=== PATIENT | female | born 1950 | race Caucasian/White ===

== ENCOUNTER → 2016-12-15 | Outpatient (CLI) | payer OTHER ==
[~2016-12-15] MED LIST: EST1 PO; HYDROCODONE PO; IBUP-1050 PO; OXYC1TAB3 PO
--- NOTE | 2016-12-15 14:36 | MAMMOGRAPHY REPORT ---
BILATERAL DIGITAL SCREENING MAMMOGRAM WITH CAD: 12/15/2016 CLINICAL HISTORY: Routine screening. Patient has no complaints. TECHNIQUE: Bilateral CC and MLO views were obtained. Current study was also evaluated with a Comput er Aided Detection (CAD) system. COMPARISON: Comparison is made to exams dated: 12/11/2015 mammogram, 11/09/2014 mammogram, 11/07/2013 mammogram, 11/04/2012 mammogram, 11/06/2011 mammogram, and 10/31/2009 mammogram - [facility]. BREAST COMPOSITION: There are scattered areas of fibroglandular density in both breasts. FINDINGS: The parenchymal pattern is similar to prior exams. There are benign calcifications in th e breasts. No developing mass, architectural distortion or cluster of suspicious microcalcification s is seen in either breast. IMPRESSION: ACR BI-RADS CATEGORY 2: BENIGN There is no mammographic evidence of malignancy. A 1 year screening mammogram is recommended. The p atient will receive written notification of the results. Approximately 10% of breast cancers are not detected with mammography. A negative mammographic repor t should not delay biopsy if a clinically suggestive mass is present. Yamilet Avalos M.D. ay/:12/15/2016 09:25:01 Employee Training Specialist: [employer] LATIF(Nan)(Guerita)(BD), [facility] letter sent: Normal 1/2 BI-RADS Code: ACR BI-RADS Category 2: Benign
== END | disposition home or self-care (01) ==
LOC: C.MAMM 08:49
PROVIDERS: ATTEND Family Medicine
DX: Z12.31 Encounter for screening mammogram for malignant neoplasm of breast (principal)

== ENCOUNTER → 2017-12-16 | Outpatient (CLI) | payer OTHER ==
--- NOTE | 2017-12-16 15:56 | MAMMOGRAPHY REPORT ---
BILATERAL DIGITAL SCREENING MAMMOGRAM TOMOSYNTHESIS WITH CAD: 12/16/2017 CLINICAL HISTORY: Routine screening. Patient has no complaints. TECHNIQUE: Breast tomosynthesis in addition to standard 2D mammography was performed. Current study was also evaluated with a Computer Aided Detection (CAD) system. COMPARISON: Comparison is made to exams dated: 12/15/2016 mammogram, 12/11/2015 mammogram, 11/09/2014 m ammogram, 11/07/2013 mammogram, 11/04/2012 mammogram, and 11/06/2011 mammogram - [facility]. BREAST COMPOSITION: There are scattered areas of fibroglandular density in both breasts. FINDINGS: The parenchymal pattern is similar to prior mammograms. There is stable asymmetry in the medial, middle one third of the left breast. A few scattered benign rim calcifications. No suspiciou s mass, architectural distortion or cluster of microcalcifications is seen. IMPRESSION: ACR BI-RADS CATEGORY 2: BENIGN There is no mammographic evidence of malignancy. A 1 year screening mammogram is recommended. The pa tient will receive written notification of the results. Approximately 10% of breast cancers are not detected with mammography. A negative mammographic report should not delay biopsy if a clinically suggestive mass is present. Yamilet Avalos M.D. ay/:12/16/2017 10:08:43 Sleeve Fixer: Reema LATIF(Nan)(), [facility] letter sent: Normal 1/2 BI-RADS Code: ACR BI-RADS Category 2: Benign
== END | disposition home or self-care (01) ==
LOC: C.MAMM 09:22
PROVIDERS: ATTEND Nurse Practitioner
DX: Z12.31 Encounter for screening mammogram for malignant neoplasm of breast (principal)

== ENCOUNTER 2022-12-01 13:08 | Inpatient (IN) ==
[2022-12-01 14:00] LABS: Basophils # (auto) 0.04 K/uL (0-0.2); Basophils % (auto) 0.6 %; Eosinophils # (auto) 0.25 K/uL (0-0.50); Eosinophils % (auto) 3.9 %; Hematocrit (blood only) 42.8 % (37.0-47.0); Immature Granulocytes # (auto) 0.02 K/uL (0.01-0.20); Immature Granulocytes % (auto) 0.3 %; Lymphocytes # (auto) 2.58 K/uL (1.2-3.4); Lymphocytes % (auto) 40.6 %; Mean Corpuscular Hemoglobin 32.3 pg (25.0-34.0); Mean Platelet Volume 11.2 fL (9.4-12.4); Monocytes # (auto) 0.32 K/uL (0.11-0.59); Neutrophils # (auto) 3.14 K/uL (1.40-6.50); Neutrophils % (auto) 49.6 %; Platelet Count 184 K/uL (130-400); RDW Coefficient of Variation 11.9 % (11.5-14.5); RDW Standard Deviation 39.9 fL (36.4-46.3); Red Blood Count 4.65 M/uL (4.20-5.40); White Blood Count 6.35 K/ul (4.8-10.8)
[2022-12-01 14:17] LABS: Albumin Globulin Ratio 1.4 (0.9-2); Albumin Level 4.2 gm/dl (3.4-5.0); BUN Creatinine Ratio 37.2 (10-20); Bilirubin,Total 0.7 mg/dl (0.2-1.0); Calcium 9.3 mg/dl (8.5-10.1); Creatinine Clr Calc Pharmacy 56.3 ml/min; Potassium 3.5 mmol/L (3.5-5.1); Total Protein 7.2 gm/dl (6.0-8.3)
[2022-12-01 14:21] LABS: Troponin I High Sensitivity 3.2 pg/ml (0-14)
--- NOTE | 2022-12-01 14:40 | XRay Report ---
TWO VIEW CHEST CLINICAL HISTORY: Atypical chest pain. FINDINGS: PA and lateral chest radiographs are compared to study dated 04/14/2019. The heart is mildly enlarged noting atherosclerotic calcification of the thoracic aorta. The pulmonary vasculature is n oncongested PA The lungs and pleural spaces are otherwise clear noting bibasilar scarring/atelectasis . There is no pneumothorax. The skeletal structures are osteopenic. The bony thorax appears intact. IMPRESSION: No active disease in the chest. ACT 112: Negative or not required by law. Electronically signed by: Pito Palacios M.D. 12/01/2022 2:39 PM
[2022-12-01] MEDS: SODIUM CHLORIDE 0.9% 1000ML 1,000 ML IV SCH (16:46)
--- NOTE | 2022-12-01 16:51 | Emergency Department Note ---
Impression & Plan Abnormal ECG, Intermittent chest pain ED Provider Note ED Provider Note NAME: DANY MEDRANO AGE:72 SEX: Female : 1950 ARRIVES VIA: Private vehicle INFORMANT: Patient ED PROVIDER(s): Kathrin Floyd DO CHIEF COMPLAINT: Abnormal EKG, intermittent chest pain HPI: This is a 72-year-old female who presents to the emergency department after being directed here from the cardiology office for additional evaluation. Patient states she saw cardiology at the recommendation of her PCP due to concern for what she describes as intermittent cramps which also included her left chest wall and left ribs. Her PCP performed an EKG in the office and was concerned and scheduled her to see cardiology. She states she has been having these intermittent muscle spasms in her extremities as well as her abdomen and not only in her chest. She cannot pinpoint a trigger for these episodes or pattern to them. They are not only with exertion. She denies recent fevers chills or other illness. 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 Patient denies any current pain. She denies any coming shortness of breath, nausea, dizziness, or sweating. No other recent change in medications. PAST MEDICAL HISTORY:See Below PAST SURGICAL HISTORY:See Below FAMILY HISTORY:See Below SOCIAL HISTORY:See Below HOME MEDICATIONS:See Below ALLERGIES:See Below VITALS:See Below PHYSICAL EXAMINATION: GENERAL: alert, well appearing, well nourished, no distress, non-toxic EYE EXAM: normal conjunctiva, PERRL and EOM's grossly intact OROPHARYNX: no exudate, no erythema, lips, buccal mucosa, and tongue normal and mucous membranes are moist NECK: supple, no nuchal rigidity, no adenopathy, non-tender LUNGS: Clear to auscultation. Normal chest wall mechanics, no w/r/r HEART: no murmurs, S1 normal and S2 normal ABDOMEN: abdomen soft, non-tender, normo-active bowel sounds, no masses, no rebound or guarding. BACK: Back is symmetrical on inspection and there is no deformity, no midline tenderness, no CVA tenderness. SKIN: no rashes, petechiae, orbruising UPPER EXTREMITIES: upper extremities are grossly normal. FROM, nml pulses b/l. LOWER EXTREMITIES: No pitting edema. FROM, nml pulses b/l. NEURO EXAM: Normal sensorium, cranial nerves II-XII grossly intact, normal speech, no facial droop,nogross weakness of arms, no gross weakness of legs. Gross sensation intact. No ataxia. Vital Signs: reviewed and remarkable Differential Diagnosis: Differential diagnoses includes but is not limited to acute coronary syndrome, pericarditis, pulmonary embolus, aortic dissection, pneumonia, pneumothorax, musculoskeletal, shingles, esophageal. MEDICAL DECISION MAKING: This is a 72-year-old female who presents emergency room after being sent here from outpatient cardiology office. Patient had no pain at this time. She was afebrile and hemodynamically stable. EKG does reveal T wave inversions which were seen on prior from 2 weeks ago. Labs drawn and sent, IV established. Initial troponin negative. Given patient was sent in from cardiology, I did contact them to discuss the case after reviewing the office notes. Patient scheduled to have catheterization in the morning due to intermittent pain and new EKG changes recently. Given history of prior PEs, I did send patient for CT angiography of the chest, this was reassuring and negative. Patient main stable in the emergency room, no ectopy or dysrhythmia, [facility]. Patient had no pain in the emergency room, per cardiology did not require heparin. Consultation(s): 1720: Discussed with Dr. Rain. 1750: [facility] Treatment Provided: See below Diagnostics Interpreted By Me: -ECG: Normal sinus at 63, normal QRS and QTc, normal axis, inverted T waves noted in 2, 3, aVF, V2 through V5 with flattened T wave in V6 -Cardiac Monitoring: An order was placed for continuous cardiac monitoring. The monitor shows a rate of 60 with normal sinus rhythm. -Laboratory studies: As stated above and show below. -Imaging studies: [] Triage Nursing Note Reviewed Prior/Outside Records Reviewed -outpatient cardiology office visit note and old EKGs Procedures: [] Critical Care: [] Past Med/Surg History Medical History Hypertension MDD (major depressive disorder) Migraine Reactive airway disease Surgical History History of total abdominal hysterectomy Hx of foot surgery Hx of nasal septoplasty Family History Mother Lung disease Heart disease Uncle Cancer Brain Aunt Diabetes Other Family history non-contributory Social History Smoking Status: Former smoker Hx Alcohol Use: Yes Hx Substance Use: No Preferred Language: Turkish Urology Physician Required: No Beliefs That Will Affect Care: None Current Living Situation: Alone Feels Safe at Home: Yes Safety Concerns: Feels Safe At This Time Allergies Allergies Allergy/AdvReac Type Severity Reaction Status Date / Time sulfamethoxazole Allergy Mild Verified 12/01/22 19:09 [From Bactrim] trimethoprim [From Bactrim] Allergy Mild Verified 12/01/22 19:09 vicryl Allergy Intermediate Uncoded 12/01/22 19:09 Home Meds Home Medications Medication Instructions Recorded Confirmed azelastine 137 mcg (0.1 %) nasal 2 spray intranasal DAILY 03/29/19 12/01/22 spray aerosol cholecalciferol (vitamin D3) 125 5,000 unit PO DAILY 03/29/19 12/01/22 mcg (5,000 unit) tablet (Vitamin D3) sertraline 50 mg tablet 100 mg PO DAILY 03/29/19 12/01/22 hydrochlorothiazide 25 mg tablet 25 mg PO QAM 04/14/19 12/01/22 atorvastatin 20 mg tablet 20 mg PO QAM 12/01/22 12/01/22 hydrochlorothiazide 25 mg tablet 25 mg PO QAM 12/01/22 12/01/22 metoprolol succinate 25 mg 25 mg PO BID 12/01/22 12/01/22 tablet,extended release 24 hr oxybutynin chloride 5 mg tablet 5 mg PO BID 12/01/22 12/01/22 potassium chloride 10 mEq 10 meq PO QAM 12/01/22 12/01/22 tablet,extended release Previous Rx's Medication Instructions Recorded sumatriptan succinate 100 mg tablet See Rx Instructions PO .COMPLEX 05/05/19 #12 tabs montelukast 10 mg tablet 10 mg PO HS #90 tabs 09/19/19 (Singulair) Results & Data (ED) Vital Signs Vital Signs - 24 hr 12/01/22 13:11 12/01/22 16:41 12/01/22 16:33 Temperature 36.6 C Temperature Source Temporal Artery Scan Pulse Rate 63 59 L 63 Pulse Rate [Apical] Pulse Rhythm Regular Respiratory Rate 18 16 Blood Pressure 123/74 Blood Pressure Mean 90 Blood Pressure Position Sitting Pulse Oximetry 94 95 Oxygen Delivery Method Room Air Room Air Sepsis Recent Fever Within 48 Hours No Sepsis New/Unexplained Change in Mental Status N/A Sepsis Action Taken by Nursing No Action Required 12/01/22 17:53 Temperature Temperature Source Pulse Rate Pulse Rate [Apical] 58 L Pulse Rhythm Respiratory Rate 18 Blood Pressure Blood Pressure Mean Blood Pressure Position Pulse Oximetry 94 Oxygen Delivery Method Room Air Sepsis Recent Fever Within 48 Hours Sepsis New/Unexplained Change in Mental Status Sepsis Action Taken by Nursing Laboratory Data 12/01/22 13:30 12/01/22 13:30 Lab Results 12/01/22 12/01/22 Range/Units 13:30 13:30 WBC 6.35 (4.8-10.8) K/ul RBC 4.65 (4.20-5.40) M/uL Hgb 15.0 (12.0-16.0) g/dl Hct 42.8 (37.0-47.0) % MCV 92.0 (80.0-100.0) fL MCH 32.3 (25.0-34.0) pg MCHC 35.0 (32.0-36.0) g/dL RDW Std Deviation 39.9 (36.4-46.3) fL RDW Coeff of Hunter 11.9 (11.5-14.5) % Plt Count 184 (130-400) K/uL MPV 11.2 (9.4-12.4) fL Immature Gran % (Auto) 0.3 % Neut % (Auto) 49.6 % Lymph % (Auto) 40.6 % [place] % (Auto) 5.0 % Eos % (Auto) 3.9 % Baso % (Auto) 0.6 % Neut # (Auto) 3.14 (1.40-6.50) K/uL Lymph # (Auto) 2.58 (1.2-3.4) K/uL [place] # (Auto) 0.32 (0.11-0.59) K/uL Eos # (Auto) 0.25 (0-0.50) K/uL Baso # (Auto) 0.04 (0-0.2) K/uL Immature Gran # (Auto) 0.02 (0.01-0.20) K/uL Sodium 138 (136-145) mmol/L Potassium 3.5 (3.5-5.1) mmol/L Chloride 103 (98-107) mmol/L Carbon Dioxide 30 (21-32) mmol/L Anion Gap 5 (3-11) BUN 29 H (6-23) mg/dl Creatinine 0.78 (0.6-1.2) mg/dl Est Cr Clr Drug Dosing 56.3 ml/min Est GFR ( Amer) 88.0 ml/min Est GFR (Non-Af Amer) 76.0 ml/min BUN/Creatinine Ratio 37.2 H (10-20) Glucose 93 (70-99(Fasting)) mg/dl Calcium 9.3 (8.5-10.1) mg/dl Magnesium 1.8 (1.7-2.4) mg/dl Total Bilirubin 0.7 (0.2-1.0) mg/dl AST 23 (13-39) U/L ALT 18 (7-52) U/L Alkaline Phosphatase 62 (34-104) U/L Troponin I High Sens 3.2 (0-14) pg/ml Total Protein 7.2 (6.0-8.3) gm/dl Albumin 4.2 (3.4-5.0) gm/dl Globulin 3.0 (2.5-4.0) gm/dl Albumin/Globulin Ratio 1.4 (0.9-2) Lipase 22 (11-82) U/L Administered Medications Sodium Chloride (Nss 1000ml) 1,000 mls @ 200 mls/hr IV .Q5H [facility] Stop: 12/31/22 16:44 Last Admin: 12/01/22 16:46 Dose: 200 mls/hr Documented By: NRB Discontinued Medications Ioversol (Optiray 320 500ml) 113 ml IV ONCE ONE Stop: 12/01/22 17:31 Last Admin: 12/01/22 17:32 Dose: 113 ml Documented By: EFRAIN Potassium Chloride (Potassium Chloride Crtab 20 Meq Tabcr) 40 meq PO NOW STA Stop: 12/01/22 16:54 Last Admin: 12/01/22 17:00 Dose: 40 meq Documented By: BAILEE Imaging Data Radiologist's Impression: Chest X-Ray 12/01/22 13:16 TWO VIEW CHEST CLINICAL HISTORY: Atypical chest pain. FINDINGS: PA and lateral chest radiographs are compared to study dated 04/14/2019. The heart is mildly enlarged noting atherosclerotic calcification of the thoracic aorta. The pulmonary vasculature is noncongested PA The lungs and pleural spaces are otherwise clear noting bibasilar scarring/atelectasis. There is no pneumothorax. The skeletal structures are osteopenic. The bony thorax appears intact. IMPRESSION: No active disease in the chest. ACT 112: Negative or not required by law. Electronically signed by: Pito Palacios M.D. 12/01/2022 2:39 PM Chest CTA 12/01/22 16:53 CT ANGIOGRAPHY OF THE CHEST, PULMONARY EMBOLUS PROTOCOL CLINICAL HISTORY: Shortness of breath. Evaluate for pulmonary embolus. COMPARISON STUDY: Chest CT March 29, 2019 and chest radiograph performed earlier today. TECHNIQUE: Following IV administration of 113 mL of Optiray, helical axial images of the chest were obtained utilizing the pulmonary embolus protocol. Maximal intensity projections and sagittal and coronal reformats were viewed on an independent 3D workstation. IV contrast was administered without complication. Automated exposure control was utilized for the study. A dose lowering technique was utilized adhering to the principles of ALARA. CT DOSE: 373.18 mGy.cm FINDINGS: No pulmonary emboli are identified. There is no thoracic aortic dissection. Size of the heart is at the upper limits of normal. There is no pericardial effusion. No enlarged thoracic lymph nodes are present. Prominent right hilar lymph node is unchanged since prior CT. This is benign. Central airways are patent. Subpleural opacities within lungs represent atelectasis or scarring. There is no consolidation to suggest pneumonia. Mild bronchial wall thickening and multifocal mucus plugging is again noted. No acute fractures within the bony thorax are noted. IMPRESSION: 1. No pulmonary emboli identified. 2. Subpleural opacities within the lungs suggestive of atelectasis or scarring. No consolidation to suggest pneumonia. 3. Mild bronchial wall thickening and mucus plugging, similar to prior exam. ACT 112: Negative or not required by law. Electronically signed by: Miguel Diaz M.D. 12/01/2022 5:55 PM Discharge Plan Visit Data Chief Complaint: Cardiac Assessment Stated Complaint: CARDIAC ASSESSMENT, REF BY DOC ED Provider: Kathrin Floyd Discharge Problem: Abnormal ECG, Intermittent chest pain Patient Disposition: Admitted As Inpatient Discharge Instructions Interventions: ED Discharge Assessment Last Done: 12/01/22 18:55
[2022-12-01] MEDS ORDERED: POTASSIUM CHLORIDE CRTAB 20 MEQ TABCR PO STA (16:53)
[2022-12-01] MEDS ORDERED: OPTIRAY 320 500ml IV ONE (17:30)
--- NOTE | 2022-12-01 17:56 | CT Scan Report ---
CT ANGIOGRAPHY OF THE CHEST, PULMONARY EMBOLUS PROTOCOL CLINICAL HISTORY: Shortness of breath. Evaluate for pulmonary embolus. COMPARISON STUDY: Chest CT March 29, 2019 and chest radiograph performed earlier today. TECHNIQUE: Following IV administration of 113 mL of Optiray, helical axial images of the chest were o btained utilizing the pulmonary embolus protocol. Maximal intensity projections and sagittal and cor onal reformats were viewed on an independent 3D workstation. IV contrast was administered without co mplication. Automated exposure control was utilized for the study. A dose lowering technique was ut ilized adhering to the principles of ALARA. CT DOSE: 373.18 mGy.cm FINDINGS: No pulmonary emboli are identified. There is no thoracic aortic dissection. Size of the he art is at the upper limits of normal. There is no pericardial effusion. No enlarged thoracic lymph no abiodun are present. Prominent right hilar lymph node is unchanged since prior CT. This is benign. Centra l airways are patent. Subpleural opacities within lungs represent atelectasis or scarring. There is n o consolidation to suggest pneumonia. Mild bronchial wall thickening and multifocal mucus plugging is again noted. No acute fractures within the bony thorax are noted. IMPRESSION: 1. No pulmonary emboli identified. 2. Subpleural opacities within the lungs suggestive of atelectasis or scarring. No consolidation to s uggest pneumonia. 3. Mild bronchial wall thickening and mucus plugging, similar to prior exam. ACT 112: Negative or not required by law. Electronically signed by: Miguel Diaz M.D. 12/01/2022 5:55 PM
--- NOTE | 2022-12-01 18:00 | History & Physical Report ---
Date of Service December 01, 2022 Assessment & Plan (1) Abnormal ECG: (2) Hypertension: (3) Chest pain: Plan: - Admit to tele for planned cardiac catheterization tomorrow per cardiology, consulted, appreciate recs - Trend cardiac biomarkers, initial set was negative - EKG reviewed as above - Check 2 D echo was completed as an outpatient, reviewed this personally, showing LVEF of 50 to 55%, no valvular abnormalities, mild concentric LVH. No need to repeat another inpatient echo. - EKG prn for chest pain, can consider nitro paste if needed for chest pain. - N.p.o. after midnight for cath - Cont HCTZ, metoprolol - Noted borderline hypokalemia, will continue p.o. potassium supplementation - May continue asa 81 mg (4) Reactive airway disease: Plan: -History of such, chronic, may continue inhalers as needed -Continue montelukast (5) MDD (major depressive disorder): Plan: -Continue sertraline 100 mg daily DVT PPx: - teds, scds CODE: DNR/DNI Dispo: From home, likely to remain in the hospital x 1-2 days A total of 77 minutes were spent with greater than 50% of that time face to face with the patient, personally reviewing all current laboratories, imaging studies, past medication reconciliation, outpatient chart review, and discussion with specialists to collaborate care for the patient with attending. Please see attending documentation for corrections and/or additions. History of Present Illness Chief Complaint: chest pain Primary Care Provider: Milad Vasquez MD This is a 72 yo F with PMhx of DVT/PE in Nov 2018, allergic rhinitis, chronic sinusitis, and possible reactive airway disease, migraines, HTN, anxiety, former tobacco user, who presents today with chest pain. Today she presents from the outpatient cardiology office after referral from [facility] for chest heaviness and pressure. She describes having a "katiana horse, like spasm sensation over her chest" Pt also admits to having dizziness, but also states hx of vertigo with turning to the left. The only thing she can do to relieve the pain is to lean back and stretch out her chest. It seems to improve within 1.5 minutes. She denies any associated shortness of breath but has a chronic cough associated with reactive airway disease, brings up white/beverly phlegm but denies any hemoptysis. She uses inhalers as needed and does not wear any O2 at baseline. Two weeks ago she was sent to the [facility], where it was noted that she was hypokalemic. She has been taking HCTZ. Today she is borderline hypokalemia again. Troponin today is 3.2 . Surgical Hx: Social Hx: former tobacco use over 50 years ago; age [age] x1 ppd drinks alcohol : 1-3 shot whiskey mixed with some water "depending on the day", reports 1 drink in the past week, denies withdrawal symptoms Allergies Allergy/AdvReac Type Severity Reaction Status Date / Time sulfamethoxazole Allergy Mild Verified 12/01/22 19:09 [From Bactrim] trimethoprim [From Bactrim] Allergy Mild Verified 12/01/22 19:09 vicryl Allergy Intermediate Uncoded 12/01/22 19:09 Home Medications Medication Instructions Recorded Confirmed Type azelastine 137 mcg (0.1 %) nasal 2 spray intranasal DAILY 03/29/19 12/01/22 History spray aerosol cholecalciferol (vitamin D3) 125 5,000 unit PO DAILY 03/29/19 12/01/22 History mcg (5,000 unit) tablet (Vitamin D3) sertraline 50 mg tablet 100 mg PO DAILY 03/29/19 12/01/22 History hydrochlorothiazide 25 mg tablet 25 mg PO QAM 04/14/19 12/01/22 History sumatriptan succinate 100 mg tablet See Rx Instructions PO .COMPLEX 05/05/19 12/01/22 Rx #12 tabs montelukast 10 mg tablet 10 mg PO HS #90 tabs 09/19/19 12/01/22 Rx (Singulair) atorvastatin 20 mg tablet 20 mg PO QAM 12/01/22 12/01/22 History hydrochlorothiazide 25 mg tablet 25 mg PO QAM 12/01/22 12/01/22 History metoprolol succinate 25 mg 25 mg PO BID 12/01/22 12/01/22 History tablet,extended release 24 hr oxybutynin chloride 5 mg tablet 5 mg PO BID 12/01/22 12/01/22 History potassium chloride 10 mEq 10 meq PO QAM 12/01/22 12/01/22 History tablet,extended release Past Med/Surg History Medical History (Updated 12/01/22 @ 19:47 by Nargis Wakefield PA-C) Hypertension MDD (major depressive disorder) Migraine Reactive airway disease Surgical History (Updated 12/01/22 @ 19:11 by Nargis Wakefield PA-C) History of total abdominal hysterectomy Hx of foot surgery Hx of nasal septoplasty Family History (Updated 12/01/22 @ 19:10 by Nargis Wakefield PA-C) Mother Lung disease Heart disease Uncle Cancer Brain Aunt Diabetes Other Family history non-contributory Social History Smoking Status: Never smoker Preferred Language: Maori Feels Safe at Home: Yes Review of Systems Review of Systems: Constitutional: No fever, sweats or chills Eyes: No diplopia, no worsening or blurred vision ENT: normal hearing, no trouble swallowing Respiratory: + chronic cough, + sputum, denies dyspnea at rest or on exertion Cardiovascular: As per HPI, currently no chest pain, tightness or palpitations Abdomen: No pain, nausea, vomiting, diarrhea or constipation Musculoskeletal: No joint pain, calf pain, swelling Neurologic: No weakness, numbness/tingling, or balance problems Psychiatric: No anxiety or depression Skin: No rash or itch Physical Exam Physical Exam: General: awake, alert, no apparent distress, appears younger than stated age Head: Normocephalic, atraumatic ENT: PERRL, EOMI, no pharyngeal exudate, mucous membranes moist Chest: No chest tenderness on palpation of chest wall, clear to auscultation, on room air, no adventitious breath sounds Cardiac: Regular rate and rhythm, no murmur, no JVD, normal peripheral pulses, good capillary refill Abdominal: NABS x 4 quadrants, soft, nondistended, nontender to palpation, no rebound or guarding Extremities: Normal inspection, no peripheral edema or erythema, calfs nontender to palpation Psych: Normal mood and affect Neuro: AAO x 3, strength intact bilaterally and rated 5/5, no motor deficits, speech is clear, no peripheral sensory deficits Skin: Tattoo on right ankle Results & Data Results & Data ([facility]) Vital Signs (Past 12 Hours) Vital Signs Temp Pulse Pulse Resp BP Pulse Ox O2 Del Method 12/01/22 17:53 58 L 18 94 Room Air 12/01/22 16:33 63 12/01/22 16:41 59 L 16 95 Room Air 12/01/22 13:11 36.6 C 63 18 123/74 94 Room Air Laboratory Results 12/01/22 12/01/22 12/01/22 Unknown 13:30 13:30 WBC 6.35 RBC 4.65 Hgb 15.0 Hct 42.8 MCV 92.0 MCH 32.3 MCHC 35.0 RDW Std Deviation 39.9 RDW Coeff of Hunter 11.9 Plt Count 184 MPV 11.2 Immature Gran % (Auto) 0.3 Neut % (Auto) 49.6 Lymph % (Auto) 40.6 Davis % (Auto) 5.0 Eos % (Auto) 3.9 Baso % (Auto) 0.6 Neut # (Auto) 3.14 Lymph # (Auto) 2.58 Davis # (Auto) 0.32 Eos # (Auto) 0.25 Baso # (Auto) 0.04 Immature Gran # (Auto) 0.02 Sodium 138 Potassium 3.5 Chloride 103 Carbon Dioxide 30 Anion Gap 5 BUN 29 H Creatinine 0.78 Est Cr Clr Drug Dosing 56.3 Est GFR ( Amer) 88.0 Est GFR (Non-Af Amer) 76.0 BUN/Creatinine Ratio 37.2 H Glucose 93 Calcium 9.3 Magnesium 1.8 Total Bilirubin 0.7 AST 23 ALT 18 Alkaline Phosphatase 62 Troponin I High Sens 3.2 Total Protein 7.2 Albumin 4.2 Globulin 3.0 Albumin/Globulin Ratio 1.4 Lipase 22 SARS-CoV-2, RNA, NAAT NEGATIVE Diagnostic Findings Chest X-Ray 12/01/22 13:16 TWO VIEW CHEST CLINICAL HISTORY: Atypical chest pain. FINDINGS: PA and lateral chest radiographs are compared to study dated 04/14/2019. The heart is mildly enlarged noting atherosclerotic calcification of the thoracic aorta. The pulmonary vasculature is noncongested PA The lungs and pleural spaces are otherwise clear noting bibasilar scarring/atelectasis. There is no pneumothorax. The skeletal structures are osteopenic. The bony thorax appears intact. IMPRESSION: No active disease in the chest. ACT 112: Negative or not required by law. Electronically signed by: Pito Palacios M.D. 12/01/2022 2:39 PM Chest CTA 02/13/23 16:53 CT ANGIOGRAPHY OF THE CHEST, PULMONARY EMBOLUS PROTOCOL CLINICAL HISTORY: Shortness of breath. Evaluate for pulmonary embolus. COMPARISON STUDY: Chest CT March 29, 2019 and chest radiograph performed earlier today. TECHNIQUE: Following IV administration of 113 mL of Optiray, helical axial images of the chest were obtained utilizing the pulmonary embolus protocol. Maximal intensity projections and sagittal and coronal reformats were viewed on an independent 3D workstation. IV contrast was administered without complication. Automated exposure control was utilized for the study. A dose lowering technique was utilized adhering to the principles of ALARA. CT DOSE: 373.18 mGy.cm FINDINGS: No pulmonary emboli are identified. There is no thoracic aortic dissection. Size of the heart is at the upper limits of normal. There is no pericardial effusion. No enlarged thoracic lymph nodes are present. Prominent right hilar lymph node is unchanged since prior CT. This is benign. Central airways are patent. Subpleural opacities within lungs represent atelectasis or scarring. There is no consolidation to suggest pneumonia. Mild bronchial wall thickening and multifocal mucus plugging is again noted. No acute fractures within the bony thorax are noted. IMPRESSION: 1. No pulmonary emboli identified. 2. Subpleural opacities within the lungs suggestive of atelectasis or scarring. No consolidation to suggest pneumonia. 3. Mild bronchial wall thickening and mucus plugging, similar to prior exam. ACT 112: Negative or not required by law. Electronically signed by: Miguel Diaz M.D. 12/01/2022 5:55 PM ECG Additional Comments: Reviewed personally, showing ST and T wave inversions in inferior and anterior leads 01-DEC-2022 13:29:11 [facility]-EDSTAT ROUTINE RETRIEVAL Normal sinus rhythm ST & T wave abnormality, consider inferior ischemia ST & T wave abnormality, consider anterior ischemia Abnormal ECG When compared with ECG of 14-APR-2019 18:32, Borderline criteria for Inferior infarct are no longer Present T wave inversion more evident in Inferior leads Inverted T waves have replaced nonspecific T wave abnormality in Anterior leads 25mm/[id number] 241CID: 3Unconfirmed Vent. rate 63 BPM CO interval 144 ms QRS duration 84 ms QT/QTc 426/435 ms Code Status & VTE Plan Code Status DNR/DNI-discussed with the patient at bedside Supervising Physician Co-Signing Physician Notes Date of Service: December 01, 2022 History and physical exam performed by me notable for 72yo F with medical problems as detailed who was sent in from cards office for card cath as part of workup for chronic intermittent chest pain. Chest pain is atypical, not exertional, described as 'charley horse' Reports chronic cough and shortness of breath, unchanged Also has chronic vertigo. Exam was unremarkable Labs unremarkable CTA chest did not show PE but noted subpleural scarring vs atelectasis Keep NPO PMN for cath Card consult Other plans as detailed by Nargis Wakefield PA-C
[2022-12-01 18:49] LABS: Magnesium 1.8 mg/dl (1.7-2.4)
[2022-12-01] MEDS ORDERED: ACETAMINOPHEN 325 MG TAB PO PRN (19:26)
[2022-12-01] MEDS ORDERED: ONDANSETRON INJ 2 MG/ML 2 ML VIAL IV PRN (19:26)
--- NOTE | 2022-12-01 19:58 | Communication Note ---
Date of Service: December 01, 2022 History and physical exam performed by me notable for 72yo F with medical problems as detailed who was sent in from cards office for card cath as part of workup for chronic intermittent chest pain. Chest pain is atypical, not exertional, described as 'charley horse' Reports chronic cough and shortness of breath, unchanged Also has chronic vertigo. Exam was unremarkable Labs unremarkable CTA chest did not show PE but noted subpleural scarring vs atelectasis Keep NPO PMN for cath Card consult
[2022-12-02] MEDS: SODIUM CHLORIDE 0.9% 1000ML 1,000 ML IV SCH ×3 (01:02→06:05)
[2022-12-02 06:09] LABS: Hematocrit (blood only) 37.5 % (37.0-47.0); Hemoglobin 13.1 g/dl (12.0-16.0); Mean Corpuscular Hemoglobin 32.8 pg (25.0-34.0); Mean Corpuscular Hgb Conc 34.9 g/dL (32.0-36.0); Mean Platelet Volume 10.8 fL (9.4-12.4); Platelet Count 147 K/uL (130-400); RDW Standard Deviation 41.5 fL (36.4-46.3); Red Blood Count 3.99 M/uL (4.20-5.40)
[2022-12-02 06:27] LABS: BUN Creatinine Ratio 29.3 (10-20); Calcium 7.8 mg/dl (8.5-10.1); Chol HDL Ratio 2.7 (0-5); Creatinine Clr Calc Pharmacy 67.3 ml/min; Est GFR (African American) 92.3 ml/min; Est GFR (Non-African American) 79.6 ml/min; Magnesium 1.8 mg/dl (1.7-2.4); Potassium 3.6 mmol/L (3.5-5.1)
[2022-12-02 06:57] LABS: Estimated Average Glucose 111 mg/dl; Hemoglobin A1C 5.5 % (4.5-5.6)
--- NOTE | 2022-12-02 08:59 | Cardiology Consultation ---
Date of Consultation December 02, 2022 Assessment & Plan (1) Atypical chest pain: (2) Hypertension: (3) Abnormal ECG: (4) Dyslipidemia, goal LDL below 70: (5) Coronary artery calcification: (6) Thoracic aorta atherosclerosis: Plan Very pleasant 72 year old female admitted with atypical chest pain, exertional dyspnea, abnormal EKG, multiple cardiac risk factors. Imaging with thoracic and coronary artery calcifications. High sensitivity troponin negative with outpatient resting echocardiography on 12/01/2022 revealing preserved LV systolic function without wall motion abnormality or significant valvular issues. Options of management discussed including doing nothing, medical management, referral for stress testing, and diagnostic cardiac catheterization. Risks and benefits of options explained with patient electing referral for diagnostic cardiac catheterization. Keep NPO. Continue IV fluids. Cardiac catheterization planned this afternoon. Recommend discontinuation of Hydrochlorothiazide. Hold metoprolol given observed bradycardia. Recommend continuation of aspirin, statin, risk factor, and lifestyle modification. Supervising Physician Co-Signing Physician Notes Patient seen and examined and all records inpatient and outpatient reviewed. Patient with chest discomfort with atypical features abnormal EKG with persistent complaints despite evaluations and treatments. Patient referred for diagnostic coronary angiography later today procedure and risks explained in detail to the patient additional risks of coronary invention also discussed including increased risk of myocardial infarction and urgent bypass surgery Informed consent is obtained History of Present Illness Reason for Consultation: Chest pain, T wave inversion Requesting Physician: Twyla Attending Physician: Rakel History of Present Illness Ms. Lily Cameron is a very pleasant 72-year-old female who is being seen at the request of Mrs. Wakefield and Dr. Ellington, evaluation of chest discomfort and an abnormal EKG revealing diffuse ST-T wave changes. Patient describes having chest discomfort off and on for greater than 1 year. She states that it is not a pain, describing it as a cramp or a charley horse, as if somebody grabbed a hold. The discomfort is not specific to the chest, occurring in the abdomen, fingers, lower extremities, muscles. Symptoms occur without rhyme or reason, lasting at most 2 minutes. Aggravating factors are not described. Alleviating factors are stretching or straightening up as well as increased free water intake. Patient notes meeting with her PCP approximately 2 weeks ago. EKG was abnormal with patient noting that her primary care provider suspected that she has had a myocardial infarction at some point. Due to complaints of chest discomfort and the abnormal EKG the patient was referred to the closest emergency room the same day, November 20, 2022. High-sensitivity troponin T negative at less than 6 ng/L. Notable findings in the emergency room included marked hypokalemia with a potassium of 2.8, receiving oral and IV supplementation at that time, discharge with a prescription for potassium chloride 10 mEq/day. D-dimer was negative. Chest x-ray showed chronic interstitial markings with left basilar atelectasis. On December 01, 2021 patient was evaluated in the [facility] cardiology Clinic. Resting echocardiogra phy revealed preserved LV systolic function without wall motion abnormality and without significant valvular disease. Due to ongoing discomfort and the abnormal EKG, the patient was referred to the emergency room for further evaluation and possible cardiac catheterization. Chest x-ray revealed a mildly enlarged heart with atherosclerotic calcification in the thoracic aorta and bibasilar scarring/atelectasis. CTA of the chest showed no pulmonary emboli or thoracic aortic dissection. Mild bronchial wall thickening and multifocal mucous plugging observed. High-sensitivity troponin I negative x3 at 3.2, 4.7, and 4.6 pg/mL. Past Medical and Surgical History History of DVT/PE in the setting of a staph sinus infection and possible COVID, with associated cough syncope circa late 2018. Chronic respiratory failure with hypoxia Asthma Occupational exposure in workplace Chronic sinusitis Deviated nasal septum Hypertension Migraine headaches GERD Overactive bladder Chronic low back pain Allergic rhinitis Generalized anxiety disorder Carpal tunnel surgery Remote foot/toe surgery Arthroscopic right knee surgery Sinus surgery Cystocele repair Hysterectomy Remote mechanical fall with resultant back issues, left elbow and right wrist surgical interventions Family history: Mother was a smoker and with metastatic lung cancer. She had CAD in her 70s. Father had an RI when he was young, passing with emphysema. Both were smokers. One sister passed with ? COVID; she had COPD. One brother and one sister without cardiac issues. Social history: Reformed smoker, quitting 50 years ago after smoking 1 pack/day x 5 years. Alcohol: 2 to 3-4 shots of vodka per day. No illegal drug use. Patient previously worked x23 years at [employer]. . Complete Review of Systems: Constitutional: No fevers, night sweats, or chills. HEENT: No amaurosis fugax. No macular degeneration or glaucoma. Pulmonary: See above. + Cough productive of phlegm. + Wheezing promptly aided by PRN albuterol. Cardiac: No prior cardiac history, denying CAD, RI, CHF, arrhythmia, heart murmur, rheumatic fever, or scarlet fever. GI/Abd: GERD. No dysphagia. No melana or hematochezia. Denies liver problems. Denies kidney problems. Vascular: Denies history of claudication, AAA, or carotid artery disease. Hematologic: No coagulation disorder. No abnormal bleeding. Musculoskeletal: See above. Skin: No rash. Neurologic: Denies history of TIA or CVA. Denies history of seizure. Female : Overactive bladder, treated with oxybutynin with resultant dry mouth. Endocrine: Denies diabetes history. Denies thyroid problems. Complete Review of Systems is as stated above, negative, or noncontributory. Allergies Allergy/AdvReac Type Severity Reaction Status Date / Time sulfamethoxazole Allergy Mild Verified 12/01/22 19:09 [From Bactrim] trimethoprim [From Bactrim] Allergy Mild Verified 12/01/22 19:09 vicryl Allergy Intermediate Uncoded 12/01/22 19:09 Home Medications Medication Instructions Recorded Confirmed Type azelastine 137 mcg (0.1 %) nasal 2 spray intranasal DAILY 03/29/19 12/01/22 History spray aerosol cholecalciferol (vitamin D3) 125 5,000 unit PO DAILY 03/29/19 12/01/22 History mcg (5,000 unit) tablet (Vitamin D3) sertraline 50 mg tablet 100 mg PO DAILY 03/29/19 12/01/22 History hydrochlorothiazide 25 mg tablet 25 mg PO QAM 04/14/19 12/01/22 History sumatriptan succinate 100 mg tablet See Rx Instructions PO .COMPLEX 05/05/19 12/01/22 Rx #12 tabs montelukast 10 mg tablet 10 mg PO HS #90 tabs 09/19/19 12/01/22 Rx (Singulair) atorvastatin 20 mg tablet 20 mg PO QAM 12/01/22 12/01/22 History hydrochlorothiazide 25 mg tablet 25 mg PO QAM 12/01/22 12/01/22 History metoprolol succinate 25 mg 25 mg PO BID 12/01/22 12/01/22 History tablet,extended release 24 hr oxybutynin chloride 5 mg tablet 5 mg PO BID 12/01/22 12/01/22 History potassium chloride 10 mEq 10 meq PO QAM 12/01/22 12/01/22 History tablet,extended release Patient History Medical History Hypertension MDD (major depressive disorder) Migraine Reactive airway disease Surgical History History of total abdominal hysterectomy Hx of foot surgery Hx of nasal septoplasty Family History Mother Lung disease Heart disease Uncle Cancer Brain Aunt Diabetes Other Family history non-contributory Social History Smoking Status: Former smoker Hx Alcohol Use: Yes Hx Substance Use: No Preferred Language: Slovak Salary Manager Required: No Beliefs That Will Affect Care: None Current Living Situation: Alone Feels Safe at Home: Yes Safety Concerns: Feels Safe At This Time Physical Exam Physical Exam: General: A&Ox3. NAD. HENT: Normocephalic. Atraumatic. Eyes: PER. Conjunctiva pink, sclera clear. Neck: No carotid bruits. No JVD. No HJR. Heart: RRR, 60 bpm. No murmur. No rub. No gallop. Lungs: Diminshed. Clear to auscultation. No wheeze. Abdomen: +BS. Soft. Nontender. No masses or organomegaly. Extremities: No clubbing, cyanosis, or edema. Limited neurological examination is without focal deficits. Pulses: radial=2/4, posterior tibial=2/4. Results & Data ([facility]) Vital Signs (Past 12 Hours) Vital Signs Temp Pulse Pulse Resp BP Pulse Ox O2 Del Method 12/02/22 07:17 36.5 C 64 16 117/74 92 Room Air 12/02/22 03:47 36.6 C 62 18 98/65 L 92 Room Air 12/01/22 23:20 56 L 12/01/22 23:08 36.6 C 68 18 105/64 91 Room Air 12/01/22 21:56 77 Laboratory Results Cardiac Enzymes 12/01/22 12/01/22 12/02/22 Range/Units 13:30 19:34 00:38 AST 23 (13-39) U/L Troponin I High Sens 3.2 4.7 4.6 (0-14) pg/ml Lipids 12/02/22 Range/Units 05:40 Triglycerides 87 (0-150) mg/dl Cholesterol 122 (0-200) mg/dl HDL Cholesterol 45 mg/dl Cholesterol/HDL Ratio 2.7 (0-5) CBC 12/01/22 12/02/22 Range/Units 13:30 05:40 WBC 6.35 5.10 (4.8-10.8) K/ul RBC 4.65 3.99 L (4.20-5.40) M/uL Hgb 15.0 13.1 (12.0-16.0) g/dl Hct 42.8 37.5 (37.0-47.0) % Plt Count 184 147 (130-400) K/uL Neut # (Auto) 3.14 (1.40-6.50) K/uL Lymph # (Auto) 2.58 (1.2-3.4) K/uL Taylor # (Auto) 0.32 (0.11-0.59) K/uL Eos # (Auto) 0.25 (0-0.50) K/uL Baso # (Auto) 0.04 (0-0.2) K/uL Comprehensive Metabolic Panel 12/01/22 12/02/22 Range/Units 13:30 05:40 Sodium 138 142 (136-145) mmol/L Potassium 3.5 3.6 (3.5-5.1) mmol/L Chloride 103 113 H (98-107) mmol/L Carbon Dioxide 30 28 (21-32) mmol/L BUN 29 H 22 (6-23) mg/dl Creatinine 0.78 0.75 (0.6-1.2) mg/dl Glucose 93 91 (70-99(Fasting)) mg/dl Calcium 9.3 7.8 L (8.5-10.1) mg/dl AST 23 (13-39) U/L ALT 18 (7-52) U/L Alkaline Phosphatase 62 (34-104) U/L Total Protein 7.2 (6.0-8.3) gm/dl Albumin 4.2 (3.4-5.0) gm/dl Intake and Output 0212/02/22 12/02/22 22:59 06:59 14:59 Intake Total 999 Balance 999 Intake: IV 999 / 1999 1000 / 1999 Sodium Chloride 0.9% 1000ML 1, 999 / 1999 1000 / 1999 000 ml @ 200 mls/hr IV .Q5H LIZBETH Rx#:[id number] Oral 120 / 120 Other: Weight 64.2 kg 75.2 kg Diagnostic Findings December 01, 2022 TTE Interpretation Summary (as per Dr. Lechuga): There was sinus bradycardia during the examination. The LV wall thickness is mildly increased (concentric). No LV segmental wall motion abnormalities. The qualitative LV ejection fraction is 55-59% (normal). The left ventricular diastolic function is mildly abnormal (grade I). There is no significant valvular pathology. EKG on presentation to the ER, December 01, 2022, personally reviewed, revealed normal sinus rhythm at [address] and T wave abnormality. QTc 435 ms. Continuous telemetry monitoring reveals sinus bradycardia/sinus rhythm with heart rates in the 50s and 60s, with rare PVC.
[2022-12-02] MEDS ORDERED: ASPIRIN 81 MG CHEW PO ONE (11:10)
[2022-12-02] MEDS ORDERED: SODIUM CHLORIDE 0.9% 1000ML 1,000 ML IV SCH (11:15)
[2022-12-02] MEDS ORDERED: HEPARIN (PORCINE) 1000 UNIT/ML 10 ML (CATH LAB USE ONLY) ONE (13:23)
[2022-12-02] MEDS ORDERED: fentaNYL citrate 100 MCG/2 ML VIAL ONE (13:23)
[2022-12-02] MEDS ORDERED: MIDAZOLAM HCL 1 MG/ML 2ML VIAL ONE (13:23)
[2022-12-02] MEDS ORDERED: niCARdipine HCL INJ 2.5 MG/ML 10 ML AMP ONE (13:23)
--- NOTE | 2022-12-02 13:25 | Pre Anesthesia Assessment ---
Date of Service December 02, 2022 Pre Sedation Assessment Vital Signs Temp Pulse Pulse Resp BP BP Pulse Ox 12/02/22 11:44 36.5 C 66 22 146/91 H 94 12/02/22 09:33 60 12/02/22 07:17 36.5 C 64 16 117/74 92 12/02/22 03:47 36.6 C 62 18 98/65 L 92 12/01/22 23:20 56 L 12/01/22 23:08 36.6 C 68 18 105/64 91 12/01/22 21:56 77 12/01/22 20:35 36.5 C 69 18 137/79 93 12/01/22 18:55 62 16 123/84 95 12/01/22 17:53 58 L 18 94 12/01/22 16:33 63 12/01/22 16:41 59 L 16 95 O2 Del Method 12/02/22 11:44 Room Air 12/02/22 09:33 12/02/22 07:17 Room Air 12/02/22 03:47 Room Air 12/01/22 23:20 12/01/22 23:08 Room Air 12/01/22 21:56 12/01/22 20:35 Room Air 12/01/22 18:55 Room Air 12/01/22 17:53 Room Air 12/01/22 16:33 12/01/22 16:41 Room Air Cardiovascular RRR, no murmur, no edema + femoral pulses present and + radial pulses present; no JVD no edema Respiratory normal respiratory effort, lungs clear to auscultation Pre-Sedation Airway Assessment Smoking Status: Former smoker Hx Sleep Apnea: No Short, Thick Neck: No Thyromental Distance: > or= 3.5 Finger Breadths Oral Cavity: + WNL Mallampati Class: II ASA: ASA3 NPO Status Date of Last Intake of Fluids: 12/01/22 Time of Last Intake of Fluids: 22:00 Date of Last Intake of Solid Food: 12/01/22 Time of Last Intake of Solid Foods: 22:00 Procedure Planning Contraindications for Sedation: none Current Medications Reviewed: Yes Notes The planned sedation has been discussed with the patient. Informed Consent was obtained. I have identified the patient, determined the appropriateness of sedation and have assessed the patient immediately prior to the procedure. All medicine(s) and interventions are by my order.
--- NOTE | 2022-12-02 14:31 | Post Anesthesia Assessment ---
Date of Service December 02, 2022 Post Sedation Assessment Vital Signs Temp Pulse Pulse Resp BP BP Pulse Ox 12/02/22 11:44 36.5 C 66 22 146/91 H 94 12/02/22 09:33 60 12/02/22 07:17 36.5 C 64 16 117/74 92 12/02/22 03:47 36.6 C 62 18 98/65 L 92 12/01/22 23:20 56 L 12/01/22 23:08 36.6 C 68 18 105/64 91 12/01/22 21:56 77 12/01/22 20:35 36.5 C 69 18 137/79 93 12/01/22 18:55 62 16 123/84 95 12/01/22 17:53 58 L 18 94 12/01/22 16:33 63 12/01/22 16:41 59 L 16 95 O2 Del Method 12/02/22 11:44 Room Air 12/02/22 09:33 12/02/22 07:17 Room Air 12/02/22 03:47 Room Air 12/01/22 23:20 12/01/22 23:08 Room Air 12/01/22 21:56 12/01/22 20:35 Room Air 12/01/22 18:55 Room Air 12/01/22 17:53 Room Air 12/01/22 16:33 12/01/22 16:41 Room Air Recovery Score Activity: Moves 4 extremities Respiration: Deep Breath/Cough Circulation: +/-20% PreAnes Value Consciousness: Fully Awake Oxygen Saturation: > 92% On Room Air Discharge Sedation Level of Care: Fast Track Phase II Post Sedation Plan On clinical assessment, the patient appears to have tolerated the sedation without complications. Patient is recovering as anticipated. Patient will continue to be monitored by nursing and may be discharged when sedation discharge criteria are met per below protocol. Upon Completions of procedure up to 15 minutes continue every 5 minute vital signs and the P.A.R. score; then discharge to a Phase I or Fast Track to Phase II per the following guidelines: * Discharge Patient to appropriate Phase II area if PAR is 8 or greater or return to pre- procedure baseline. The post - procedure orders will be as directed. * If PAR score is less than 8 or not return to pre-procedure baseline then patient will follow Phase I monitoring till PAR is reached for Phase II. The Phase I may be done in procedure room or may call to secure a Phase I area. * If naloxone or flumazenil are used for reversal, hold in Phase I for continued monitoring from when last reversal dose was given for a minimum of 60 minutes or longer pending the nurse and/or physician discretion of patient condition before discharge to Phase II. Please call the Sedation Physician to re-evaluate and complete post-note for discharge to Phase II area. Do NOT discharge from procedure sedation or Phase 1 until post- sedation evaluation note is complete by procedure /sedation MD Sedation Discharge Instructions to be given to the patient at discharge to home.
--- NOTE | 2022-12-02 14:46 | Cardiac Catheterization ---
Cardiac Cath Procedure Brief Procedure Date December 02, 2022 Pre-Procedure Diagnosis Pre-Procedure Diagnosis: Cardiothoracic Symptom AUC Score AUC Score: 7 Post-Procedure Diagnosis Post-Procedure Diagnosis: Mild CAD (Minimal luminal irregularity) Procedure(s) Performed Procedure(s) Performed: Coronary Angiography and Left Heart Cath Surgical Specialist Jermaine Jaimes MD Scheduling Administrator(s) Kathrin Brothers Estimated Blood Loss Estimated Blood Loss: <15cc Medication(s) Medication(s): Fentanyl (12.5 mcg IV), Heparin (5000 units IV), Lidocaine 1% (Local infiltration access site), Nicardipine (250 mcg intra-arterial after arterial sheath insertion) and Versed (1 mg IV) Preliminary Findings Impression: Right dominant coronary anatomy with minimal luminal irregularities, no obstructive disease Recommendations Recommendations: Medical Therapy and/or Counseling Specimens Specimens: None Fluids (cc crystalloids) Fluids (cc crystalloids): 86 Anesthesia Start time: 1341 stop time: 1414 Procedural Complication(s) None Disposition Film Sound Engineer Holding/Recovery
--- NOTE | 2022-12-02 14:57 | Cardiac Catheterization ---
Cardiac Cath Procedure Full Procedure Date December 02, 2022 Pre-Procedure Diagnosis Pre-Procedure Diagnosis: Cardiothoracic Symptom AUC Score AUC Score: 7 Post-Procedure Diagnosis Post-Procedure Diagnosis: Mild CAD (Minimal luminal irregularity) Procedure(s) Performed Procedure(s) Performed: Coronary Angiography and Left Heart Cath Senior Sustainability Advisor Jermaine Jaimes MD Manufacturing Planner(s) Kathrin Brothers Estimated Blood Loss Estimated Blood Loss: <15cc Medication(s) Medication(s): Fentanyl (12.5 mcg IV), Heparin (5000 units IV), Lidocaine 1% (Local infiltration access site), Nicardipine (250 mcg intra-arterial after arterial sheath insertion) and Versed (1 mg IV) Summary of Findings Impression: Right dominant coronary anatomy with mild luminal irregularities, no obstructive disease. Procedure: Left heart catheterization, coronary angiography Access: Right radial artery. Note distorted anatomy secondary to prior orthopedic surgery Catheters: 6 Ecuadorean slender radial sheath, 5 [place]orean [place], 5 [place]adorean JL 3.5, 5 [place]orean straight pigtail Notes: Left main engagement optimal with JL 3.5 over [place] given high upward takeoff Results: Coronary angiography: Right dominant Left Main: Normal Left anterior descending: Type II vessel which gives rise to a large septal branch and a large diagonal branch in its proximal third and courses to terminate at the apex. There is a small area of ectasia in its midportion with less than 20% narrowing and minimal calcification. The apical third is thin and tortuous but without obstructive disease Left circumflex: Moderate caliber nondominant consisting of a large obtuse marginal and 2 small posterolateral branches. There is no disease in the left circumflex Ramus intermedius: Trivial vessel Right coronary artery: Very large and dominant distribution. Gives rise to a small first right ventricular branches and a large mid vessel right ventricular branch. At the AV groove it gives rise to a long posterior descending artery and along the AV groove 2 trivial posterior ventricular branches and a large terminal posterior ventricular branch. There is no disease in the right coronary artery LV angiography: Not performed Hemodynamics LVEDP 8 Hemodynamics Rest Ao:: 137/73/99 Final Ao: 122/64/84 LV: 126/1/8 Recommendations Recommendations: Medical Therapy and/or Counseling Specimens Specimens: None Radiation Exposure (mGy) 601 Contrast (mls) 58 Fluids (cc crystalloids) Fluids (cc crystalloids): 86 Anesthesia Start time: 1341 stop time: 1414 Procedural Complication(s) None Disposition Room Service Associate Holding/Recovery I attest to the content of the Intraoperative Record and any orders documented therein. Any exceptions are noted below. ACC Data: Room Service Associate Cardiac Status Clinical evaluation leading to the procedure 72-year-old female with intermittent chest pressure pain at low-level activity and at rest with atypical features. Significantly abnormal EKG CAD Presenation: Sx unlikely to be ischemic Anginal Classification: CCS III Cardiogenic Shock within 24 Hours: No Cardiac Arrest within 24 Hours: No Imaging Studies Past 6 Months: Yes Stress Studies Past 6 Months: No Standard Exercise Test: No Stress Echocardiogram: No Stress Testing w/SPECT MPI: No Cardiac CTA: No Coronary Anatomy Dominant: Right Left Main (% Stenosis): Normal LAD (% Stenosis): Mid (Small area of mild ectasia and mid vessel minimal calcification and no obstruction) and Distal (Thin apical segment without obstructive disease) D3 (% Stenosis): Normal Circumflex (% Stenosis): Normal OM1 (% Stenosis): Normal RCA (% Stenosis): Normal R PDA (% Stenosis): Normal R PL1 (% Stenosis): Normal Left Ventricular Angiography EF (%): N/A Diagnostic Physicians Name: Jermaine Jaimes MD Status: Urgent Closure Device Percutaneous Entry Location: Radial Closure Device: Angio-Seal Recommendations: Medical Therapy and/or Counseling
--- NOTE | 2022-12-02 15:51 | Communication Note ---
Date of Service: December 02, 2022 Patient underwent diagnostic coronary angiography today without obstructive disease noted. Abnormal EKG likely combination of medications including hydrochlorothiazide and hypertension Recommendations: Stop hydrochlorothiazide. Add amlodipine 2.5 mg nightly. Reduce metoprolol succinate to 25 mg once per day Follow-up cardiology 2 to 3 weeks
--- NOTE | 2022-12-02 16:14 | Hospitalist Progress Note ---
Date of Service December 02, 2022 Assessment & Plan (1) Abnormal ECG: (2) Hypertension: (3) Chest pain: Plan: Present on admission for Atypical chest pain troponin negative x3 Outpatient resting echocardiography on 12/01/2022 revealing preserved LV systolic function without wall motion abnormality or significant valvular issues. Cardio on board Schedule for cardiac cath this afternoon Case discussed with cardiology that recommended to discontinue Hydrochlo rothiazide. Metoprolol held given observed bradycardia. Will consider to reduce metoprolol to 12.5mg Continue aspirin, statin, risk factor, and lifestyle modification. Keep NPO for now Continue monitor closely (4) Reactive airway disease: Plan: History of such, chronic, may continue inhalers as needed Continue montelukast (5) MDD (major depressive disorder): Plan: Continue sertraline 100 mg daily DVT PPx: - teds, scds CODE: DNR/DNI Disposition will discharge once medically stable A total of 50 minutes were spent with greater than 50% of that time face to face with the patient, personally reviewing all current laboratories, imaging studies, past medication reconciliation, outpatient chart review, and discussion with specialists to collaborate care for the patient. Admission and Anticipated Discharge Date Admission Date: December 01, 2022 Subjective Pt was seen and examined for follow up of chest pain Sitting in chair with no acute distress working on her tablet Pt said that she feels ok She said that she is not having any chest discomfort She is scheduled for cardiac cath later Denies any chest pain, palpitation, dizziness, shortness of breath. Review of Systems Review of Systems: All systems reviewed & are unremarkable except as noted in Subjective Physical Exam Physical Exam: General- No acute distress Head- atraumatic Eyes- PERRL, EOMI, ENT- oropharynx clear Neck- supple, no JVD Lungs- clear to auscultation Heart- regular rhythm; no murmur Abdomen- normal bowel sounds, soft, nontender Extremities- no calf tenderness Neuro- alert, oriented x 3; PERRL, EOMI; no facial palsy; no dysarthria Skin- warm & dry Results & Data Results & Data ([facility]) Vital Signs (Past 12 Hours) Vital Signs Temp Pulse Pulse Resp BP BP Pulse Ox 12/02/22 15:17 71 119/74 97 12/02/22 15:02 36.7 C 64 18 114/78 96 12/02/22 14:47 36.6 C 72 18 140/81 96 12/02/22 11:44 36.5 C 66 22 146/91 H 94 12/02/22 09:33 60 12/02/22 07:17 36.5 C 64 16 117/74 92 O2 Del Method 12/02/22 15:17 Room Air 12/02/22 15:02 Room Air 12/02/22 14:47 Room Air 12/02/22 11:44 Room Air 12/02/22 09:33 12/02/22 07:17 Room Air
--- NOTE | 2022-12-02 17:05 | Discharge Summary ---
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 Today she presents from the outpatient cardiology office after referral from [facility] for chest heaviness and pressure. She describes having a "katiana horse, like spasm sensation over her chest" Pt also admits to having dizziness, but also states hx of vertigo with turning to the left. The only thing she can do to relieve the pain is to lean back and stretch out her chest. It seems to improve within 1.5 minutes. She denies any associated shortness of breath but has a chronic cough associated with reactive airway disease, brings up white/beverly phlegm but denies any hemoptysis. She uses inhalers as needed and does not wear any O2 at baseline. Two weeks ago she was sent to the [place] ER, where it was noted that she was hypokalemic. She has been taking HCTZ. Today she is borderline hypokalemia again. Troponin today is 3.2 . Surgical Hx: Social Hx: former tobacco use over 50 years ago; age [age] x1 ppd drinks alcohol : 1-3 shot whiskey mixed with some water "depending on the day", reports 1 drink in the past week, denies withdrawal symptoms Admission Exam Per Admitting Provider General: awake, alert, no apparent distress, appears younger than stated age Head: Normocephalic, atraumatic ENT: PERRL, EOMI, no pharyngeal exudate, mucous membranes moist Chest: No chest tenderness on palpation of chest wall, clear to auscultation, on room air, no adventitious breath sounds Cardiac: Regular rate and rhythm, no murmur, no JVD, normal peripheral pulses, good capillary refill Abdominal: NABS x 4 quadrants, soft, nondistended, nontender to palpation, no rebound or guarding Extremities: Normal inspection, no peripheral edema or erythema, calfs nontender to palpation Psych: Normal mood and affect Neuro: AAO x 3, strength intact bilaterally and rated 5/5, no motor deficits, speech is clear, no peripheral sensory deficits Skin: Tattoo on right ankle Principal Diagnosis Chest pain Discharge Exam General- No acute distress Head- atraumatic Eyes- PERRL, EOMI, ENT- oropharynx clear Neck- supple, no JVD Lungs- clear to auscultation Heart- regular rhythm; no murmur Abdomen- normal bowel sounds, soft, nontender Extremities- no calf tenderness Neuro- alert, oriented x 3; PERRL, EOMI; no facial palsy; no dysarthria Skin- warm & dry Discharge Data Allergies Allergy/AdvReac Type Severity Reaction Status Date / Time sulfamethoxazole Allergy Mild Verified 12/01/22 19:09 [From Bactrim] trimethoprim [From Bactrim] Allergy Mild Verified 12/01/22 19:09 vicryl Allergy Intermediate Uncoded 12/01/22 19:09 Consultations 12/01/22 17:59 ED Decision to Admit Stat 12/01/22 19:26 Consult Cardiology Routine Procedures Performed Operation Date: 12/02/22 13:00 Actual Procedures p Cineradiography w/Routine Exam - Jermaine Jaimes MD p Cath, Left with Cors and Vent - Jermaine Jaimes MD Ordered Studies 12/01/22 16:53 CT angio chest PE protocol Stat 12/02/22 13:34 CL Cath Imgs for PACS use only Stat Laboratory Results WBC 5.10 K/ul (4.8-10.8) 12/02/22 05:40 RBC 3.99 M/uL (4.20-5.40) L 12/02/22 05:40 Hgb 13.1 g/dl (12.0-16.0) 12/02/22 05:40 Hct 37.5 % (37.0-47.0) 12/02/22 05:40 MCV 94.0 fL (80.0-100.0) 12/02/22 05:40 MCH 32.8 pg (25.0-34.0) 12/02/22 05:40 MCHC 34.9 g/dL (32.0-36.0) 12/02/22 05:40 RDW Std Deviation 41.5 fL (36.4-46.3) 12/02/22 05:40 RDW Coeff of Hunter 12.0 % (11.5-14.5) 12/02/22 05:40 Plt Count 147 K/uL (130-400) 12/02/22 05:40 MPV 10.8 fL (9.4-12.4) 12/02/22 05:40 Immature Gran % (Auto) 0.3 % 12/01/22 13:30 Neut % (Auto) 49.6 % 12/01/22 13:30 Lymph % (Auto) 40.6 % 12/01/22 13:30 [place] % (Auto) 5.0 % 12/01/22 13:30 Eos % (Auto) 3.9 % 12/01/22 13:30 Baso % (Auto) 0.6 % 12/01/22 13:30 Neut # (Auto) 3.14 K/uL (1.40-6.50) 12/01/22 13:30 Lymph # (Auto) 2.58 K/uL (1.2-3.4) 12/01/22 13:30 [place] # (Auto) 0.32 K/uL (0.11-0.59) 12/01/22 13:30 Eos # (Auto) 0.25 K/uL (0-0.50) 12/01/22 13:30 Baso # (Auto) 0.04 K/uL (0-0.2) 12/01/22 13:30 Immature Gran # (Auto) 0.02 K/uL (0.01-0.20) 12/01/22 13:30 Sodium 142 mmol/L (136-145) 12/02/22 05:40 Potassium 3.6 mmol/L (3.5-5.1) 12/02/22 05:40 Chloride 113 mmol/L (98-107) H 12/02/22 05:40 Carbon Dioxide 28 mmol/L (21-32) 12/02/22 05:40 Anion Gap 1 (3-11) L 12/02/22 05:40 BUN 22 mg/dl (6-23) 12/02/22 05:40 Creatinine 0.75 mg/dl (0.6-1.2) 12/02/22 05:40 Est Cr Clr Drug Dosing 67.3 ml/min 12/02/22 05:40 Est GFR ( Amer) 92.3 ml/min 12/02/22 05:40 Est GFR (Non-Af Amer) 79.6 ml/min 12/02/22 05:40 BUN/Creatinine Ratio 29.3 (10-20) H 12/02/22 05:40 Glucose 91 mg/dl (70-99(Fasting)) 12/02/22 05:40 Estimat Average Glucose 111 mg/dl 12/02/22 05:40 Hemoglobin A1c 5.5 % (4.5-5.6) 12/02/22 05:40 Calcium 7.8 mg/dl (8.5-10.1) L 12/02/22 05:40 Magnesium 1.8 mg/dl (1.7-2.4) 12/02/22 05:40 Total Bilirubin 0.7 mg/dl (0.2-1.0) 12/01/22 13:30 AST 23 U/L (13-39) 12/01/22 13:30 ALT 18 U/L (7-52) 12/01/22 13:30 Alkaline Phosphatase 62 U/L (34-104) 12/01/22 13:30 Troponin I High Sens 4.6 pg/ml (0-14) 12/02/22 00:38 Total Protein 7.2 gm/dl (6.0-8.3) 12/01/22 13:30 Albumin 4.2 gm/dl (3.4-5.0) 12/01/22 13:30 Globulin 3.0 gm/dl (2.5-4.0) 12/01/22 13:30 Albumin/Globulin Ratio 1.4 (0.9-2) 12/01/22 13:30 Triglycerides 87 mg/dl (0-150) 12/02/22 05:40 Cholesterol 122 mg/dl (0-200) 12/02/22 05:40 LDL Cholesterol, Calc 60 mg/dl 12/02/22 05:40 VLDL Cholesterol, Calc 17 mg/dl (0-30) 12/02/22 05:40 HDL Cholesterol 45 mg/dl 12/02/22 05:40 Cholesterol/HDL Ratio 2.7 (0-5) 12/02/22 05:40 Lipase 22 U/L (11-82) 12/01/22 13:30 SARS-CoV-2, RNA, NAAT NEGATIVE (NEGATIVE) 12/01/22 Unknown Impressions Chest X-Ray 12/01/22 13:16 TWO VIEW CHEST CLINICAL HISTORY: Atypical chest pain. FINDINGS: PA and lateral chest radiographs are compared to study dated 04/14/2019. The heart is mildly enlarged noting atherosclerotic calcification of the thoracic aorta. The pulmonary vasculature is noncongested PA The lungs and pleural spaces are otherwise clear noting bibasilar scarring/atelectasis. There is no pneumothorax. The skeletal structures are osteopenic. The bony thorax appears intact. IMPRESSION: No active disease in the chest. ACT 112: Negative or not required by law. Electronically signed by: Pito Palacios M.D. 12/01/2022 2:39 PM Chest CTA 12/01/22 16:53 CT ANGIOGRAPHY OF THE CHEST, PULMONARY EMBOLUS PROTOCOL CLINICAL HISTORY: Shortness of breath. Evaluate for pulmonary embolus. COMPARISON STUDY: Chest CT March 29, 2019 and chest radiograph performed earlier today. TECHNIQUE: Following IV administration of 113 mL of Optiray, helical axial images of the chest were obtained utilizing the pulmonary embolus protocol. Maximal intensity projections and sagittal and coronal reformats were viewed on an independent 3D workstation. IV contrast was administered without com plication. Automated exposure control was utilized for the study. A dose lowering technique was utilized adhering to the principles of ALARA. CT DOSE: 373.18 mGy.cm FINDINGS: No pulmonary emboli are identified. There is no thoracic aortic dissection. Size of the heart is at the upper limits of normal. There is no pericardial effusion. No enlarged thoracic lymph nodes are present. Prominent right hilar lymph node is unchanged since prior CT. This is benign. Central airways are patent. Subpleural opacities within lungs represent atelectasis or scarring. There is no consolidation to suggest pneumonia. Mild bronchial wall thickening and multifocal mucus plugging is again noted. No acute fractures within the bony thorax are noted. IMPRESSION: 1. No pulmonary emboli identified. 2. Subpleural opacities within the lungs suggestive of atelectasis or scarring. No consolidation to suggest pneumonia. 3. Mild bronchial wall thickening and mucus plugging, similar to prior exam. ACT 112: Negative or not required by law. Electronically signed by: Miguel Diaz M.D. 12/01/2022 5:55 PM Hospital Course (1) Abnormal ECG: (2) Hypertension: (3) Chest pain: Present on admission for Atypical chest pain troponin negative x3 Outpatient resting echocardiography on 12/01/2022 revealing preserved LV systolic function without wall motion abnormality or significant valvular issues. Cardio on board Schedule for cardiac cath this afternoon Case discussed with cardiology that recommended to discontinue Hydr ochlorothiazide. Metoprolol held given observed bradycardia. Will consider to reduce metoprolol to 12.5mg Continue aspirin, statin, risk factor, and lifestyle modification. Patient underwent diagnostic coronary angiography today without obstructive disease noted. Case discussed with cardiology that recommended to discontinue hydrochlorothiazide. amlodipine 2.5 mg nightly added and Reduce metoprolol succinate to 25 mg once per day Follow-up cardiology 2 to 3 weeks Ok from cardiology standpoint to discharge home (4) Reactive airway disease: History of such, chronic, may continue inhalers as needed Continue montelukast (5) MDD (major depressive disorder): Continue sertraline 100 mg daily DVT PPx: - teds, scds CODE: DNR/DNI Disposition Discharge home today A total of 50 minutes were spent with greater than 50% of that time face to face with the patient, personally reviewing all current laboratories, imaging studies, past medication reconciliation, outpatient chart review, and discussion with specialists to collaborate care for the patient. Total Time Total Time Spent Total Time Spent (In Minutes): 35 minutes Discharge Plan Discharge Items Patient Disposition: Home - Self-Care Reason For Visit: CHEST PAIN, CARDIAC CATH Discharge Diagnosis: Chest pain Activity: Resume your previous activity Non-emergency contact: Primary Care Provider and Credit Products Officer Call non-emergency contact if: you have any medication questions, your symptoms worsen and your wound has increased redness Follow-up/Referrals: Milad Vasquez MD [Primary Care Provider] - Diet: Heart Healthy Addtl Attending Provider Instructions: Follow up with your primary care provider Dr. Vasquez in 1 week (office will call you for the appointment) Follow up with your can striper in 2 to 3 weeks (Please call for the appointment) Metoprolol reduced to 25mg daily (start in the morning) Adding Norvasc 2.5 mg at night for your blood pressure Hydrochlorothiazide discontinued Seek medical attention if your symptoms reoccur or persist Keep the area for the cardiac cath clean and dry to avoid any infection Do not use creams, lotions or ointment on the wound site Do not take a bath, tub soak, go in a Jacuzzi, or swim in a pool or schaefer for one week after the procedure. Do not participate in strenuous activities for 3 days after the procedure. Gradually increase your activities until you reach your normal activity level within two days after the procedure. Avoid heavy lifting (more than 10 pounds) and pushing or pulling heavy objects for the first 5 days after the procedure. Pending Studies at Discharge: No Stand-Alone Forms: My [facility]tar, Smoking Cessation Medications and DC Order Prescriptions: New amlodipine 2.5 mg tablet 2.5 mg PO HS Qty: 30 0RF Continued sumatriptan succinate 100 mg tablet See Rx Instructions PO .COMPLEX Qty: 12 3RF Dose Instruction: take 1 tab at onset of headache; if no relief may repeat 1 tab in 2hr; max = 2 tabs/24 hrs PO Rx Instructions: take 1 tab at onset of headache; if no relief may repeat 1 tab in 2hr; max = 2 tabs/24 hrs PO montelukast [Singulair] 10 mg tablet 10 mg PO HS Qty: 90 5RF azelastine 137 mcg (0.1 %) aerosol,spray 2 spray intranasal DAILY sertraline 50 mg tablet 100 mg PO DAILY cholecalciferol (vitamin D3) [Vitamin D3] 5,000 unit Tablet 5,000 unit PO DAILY atorvastatin 20 mg tablet 20 mg PO QAM oxybutynin chloride 5 mg tablet 5 mg PO BID Changed metoprolol succinate 25 mg tablet extended release 24 hr 25 mg PO DAILY Qty: 30 0RF Discontinued hydrochlorothiazide 25 mg tablet 25 mg PO QAM potassium chloride 10 mEq tablet extended release 10 meq PO QAM hydrochlorothiazide 25 mg tablet 25 mg PO QAM Discharge Orders: Discharge Order (Routine); Ordered 12/02/22 Ordered By: Nat Lopez/Other Patient Handouts: Cardiac Catheterization Dc Admission Data Admit Date/Time: 12/01/22 18:05 Attending Provider: Nat Ellington Admit Provider: Ibis Ulrich I. Primary Care Provider: Milad Vasquez Other Providers: Jermaine Jaimes Other Interventions: Discharge Summary Assessment (RN) Last Done: 12/02/22 19:28
[2022-12-02 20:48] VITALS: BP 158/74; PULSE 74; TEMP 97.3; O2SAT 93
[2022-12-02] MEDS ORDERED: OXYBUTYNIN CHLORIDE 5 MG TAB PO SCH (21:00)
[2022-12-02] MEDS ORDERED: MONTELUKAST SODIUM 10 MG TABLET PO SCH (21:00)
--- NOTE | 2022-12-02 23:39 | Electrocardiogram Report ---
Test Reason : Blood Pressure : / mmHG Vent. Rate : 063 BPM Atrial Rate : 063 BPM P-R Int : 144 ms QRS Dur : 084 ms QT Int : 426 ms P-R-T Axes : 022 017 -33 degrees QTc Int : 435 ms Normal sinus rhythm Abnormal ECG When compared with ECG of 14-APR-2019 18:32, T wave inversion more evident in Inferior leads Inverted T waves have replaced nonspecific T wave abnormality in Anterior leads Confirmed by Joe Rodriguez ([id number]) on 12/02/2022 11:38:38 PM Referred By: Confirmed By:Joe Rodriguez
[2022-12-03] MEDS ORDERED: ATORVASTATIN 20 MG TAB PO SCH (09:00)
[2022-12-03] MEDS ORDERED: CHOLECALCIFEROL 5,000 UNITS 125 MCG TAB PO SCH (09:00)
[2022-12-03] MEDS ORDERED: SERTRALINE HCL 100 MG TABLET PO SCH (09:00)
== END 2022-12-02 20:34 | disposition home or self-care (01) | DRG 287 ==
LOC: ED 13:08 → 2E 18:05 → SUATTDRO 18:05 → 2E 18:55